=== PATIENT | male | born 2000 | race Caucasian/White ===

== ENCOUNTER → 2021-01-06 | Outpatient (CLI) | payer SELFPAY ==
[~2021-01-06] MED LIST: CASIRIVIMAB/IMDEVIMAB (EUA) 1,200 MG in SODIUM CHLORIDE 0.9% 100 ML IVPB NR; SODIUM CHLORIDE 0.9% 50 ML IVPB NR; SODIUM CHLORIDE 0.9% 500 ML 500 ML in EMPTY BAG 1 BAG IV PRN
[2021-01-06 13:20] VITALS: TEMP 98
[2021-01-06 14:21] VITALS: BP 133/85; PULSE 68; RESP 16
== END ==
LOC: PROCWHC3 12:50
DX: U07.1 COVID-19 (principal); J45.909 Unspecified asthma, uncomplicated
CPT/HCPCS: 96360; Q0243; M0243